=== PATIENT | male | born 1980 | race Caucasian/White ===

== ENCOUNTER 2021-04-16 14:28 | Emergency (ER) | payer OTHER, SELFPAY ==
[2021-04-16] VITALS (14 sets, daily range): BP systolic 130–150; BP diastolic 77–83; PULSE 66–91; RESP 14–25; TEMP 36.7; O2SAT 95–100
--- NOTE | 2021-04-16 15:10 | ECG_ITS ---
Measurements Intervals [place] Rate: 75 P: 48 IL: 170 QRS: -3 QRSD: 109 T: 40 QT: 366 QTc: 411 Interpretive Statements SINUS RHYTHM WITH SINUS ARRHYTHMIA INCOMPLETE RIGHT BUNDLE BRANCH BLOCK [90+ ms QRS DURATION, TERMINAL R IN V1/V2, 40+ ms S IN I/aVL/V4/V5/V6] ST ELEVATION, PROBABLY EARLY REPOLARIZATION [ST ELEVATION WITH NORMALLY INFLECTED T- WAVE] ABNORMAL ECG NO PREVIOUS ECG AVAILABLE FOR COMPARISON Electronically Signed On 04-16-2021 16:08:28 [employer]GER by Jay Jay Samuels M.D.
[2021-04-16 15:27] LABS: Basophils Absolute Auto 0.1 K/mm3 (0.0-0.1); Basophils Percent Auto 0.5 % (0.2-1.2); Eosinophils Absolute Auto 1.8 K/mm3 (0-0.3); Eosinophils Percent Auto 10.6 % (0-4.4); Hematocrit 48.7 % (42.0-52.0); Hemoglobin 16.6 g/dL (14.0-18.0); Immature Granulocyte Absolute 0.09 K/mm3 (0.00-0.031); Immature Granulocyte Percent A 0.5 % (0-0.5); Lymphocytes Absolute Auto 5.81 K/mm3 (0.9-3.2); Lymphocytes Percent Auto 35.2 % (18.3-44.2); Mean Corpuscular HGB Conc 34.1 g/dl (32-36); Mean Corpuscular Hemoglobin 31.4 pg (26-34); Mean Corpuscular Volume 92.1 fl (80-100); Mean Platelet Volume 9.8 fl (7.4-10.4); Monocytes Absolute Auto 1.1 K/mm3 (0.1-0.6); Monocytes Percent Auto 6.8 % (2.6-8.5); Neutrophils Absolute Auto 7.7 K/mm3 (1.3-6.7); Neutrophils Percent Auto 46.4 % (45.5-73.1); Platelet Count Result 228 k/mm3 (150-375); Red Blood Count 5.29 M/mm3 (4.6-6.20); Red Cell Distribution Width 12.9 % (11.5-14.5); White Blood Count 16.5 K/mm3 (4.5-10.0)
[2021-04-16 15:41] LABS: Alanine Aminotransferase 79 U/L (4-50); Albumin Level 4.3 g/dL (3.5-5.1); Alkaline Phosphatase 72 U/L (38-126); Anion Gap 8 mmol/L (8-16); Aspartate Amino Transferase 50 U/L (17-59); Bilirubin,Total 0.3 mg/dL (0.2-1.3); Blood Urea Nitrogen 23 mg/dL (9-20); Calcium 8.9 mg/dL (8.4-10.2); Carbon Dioxide 27 mmol/L (22-30); Chloride 101 mmol/L (98-107); Estimated CRCL calculation 139 ml/min; Estimated Glomerular Filt Rate > 60; Glucose 144 mg/dL (65-110); Magnesium 1.9 mg/dL (1.6-2.3); Potassium 3.9 mmol/L (3.4-5.0); Sodium 136 mmol/L (137-145)
[2021-04-16] MEDS: SODIUM CHLORIDE 0.9% IV 1,000 ML 999 ML IV CONT (15:51)
[2021-04-16 16:38] LABS: Atypical Lymphocytes Present; Platelet Estimate Adequate (Adequate); Smudge Cells FEW
--- NOTE | 2021-04-16 17:28 | PC.NURSE ---
pt. requesting to smoke a cigarette. pt. educated he cannot leave hospital with an IV in. pt. requesting to be updated. ERP made aware. no further orders at his time.
--- NOTE | 2021-04-16 17:32 | ED.NEUROSD ---
HPI - Neuro Symptoms/Deficit General Chief Complaint: Neuro Symptoms/Deficit Stated Complaint: NEUROPATHY ISSUES Time Seen by Provider: 04/16/21 14:58 History of Present Illness HPI Narrative: Patient is a 40-year-old male who presents ER with tingling discomfort to the skin of his body. The tingling can be burning and painful. Still has sensation. Ongoing for 5 days. Had his Simponi injection 2 weeks ago. Has not contacted rheumatology. No rash. Symptoms are worse with rubbing against things, touch, and touching his close. No fevers or chills or sweats. No slurred speech or facial droop. No weakness of arm or leg. No dizziness. Does have diabetes but reports his blood sugars have been normal. Has history of chronically elevated white blood cell count. Related Data Allergies Allergy/AdvReac Type Severity Reaction Status Date / Time No Known Allergies Allergy Unverified 09/21/15 14:06 Review of Systems Review of Systems: All systems reviewed & are unremarkable except as noted in HPI and below Constitutional: Constitutional: Denies chills, Denies fever(s) and Denies weakness ENT: Denies nasal congestion and Denies sore throat Cardiovascular: Cardiovascular: Denies chest pain, Denies rapid heart rate and Denies radiating jaw, neck or arm pain Respiratory: Respiratory: Denies cough, Denies dyspnea and Denies wheezing Gastrointestinal: Gastrointestinal: Denies abdominal pain, Denies nausea and Denies vomiting Neurologic: Denies vertigo, Denies dizziness, Denies syncope, Denies headache(s), Denies focal weakness and Denies numbness Comments: Tingling in extremities/trunk PMFSH Past Medical History Medical History (Updated 04/16/21 @ 17:54 by Jass Zurita MD) Diabetes Psoriatic arthritis Right arm fracture Social History Social History (Updated 01/24/19 @ 22:29 by Michael Feliciano) Smoking status: Never smoker Gender identity (if verbalized by the patient): Male Exam Narrative: GENERAL: Well-appearing, well-nourished, and in no acute distress. HEAD: Normocephalic, atraumatic. ENT: Mucous membranes moist. No facial droop. NECK: Supple. CHEST: Clear to auscultation. No respiratory distress. HEART: Regular rate and rhythm. Normal peripheral pulses. ABDOMEN: Soft, nontender, nondistended. EXTREMITIES: Normal range of motion. No edema. SKIN: Warm, dry, no rash. NEURO: No focal deficits. No upper or lower extremity drift. Normal joyp-ha-vnwl testing. Sharp and soft sensation intact. Alert and oriented x3. PSYCH: Normal mood and affect. Course Course Emergency Course: Patient informed results. Hydrated. Will give gabapentin for home and recommend follow-up with rheumatology and PCP. [place] to be a side effect of medication. No focal deficits. No infectious symptoms or back pain. Vital Signs Vital signs: Vital Signs Temperature 98.1 F 04/16/21 14:46 Pulse Rate 85 04/16/21 14:46 Respiratory Rate 18 04/16/21 14:46 Blood Pressure 150/83 H 04/16/21 14:46 Pulse Oximetry 98 04/16/21 14:46 Temperature 98.1 F 04/16/21 14:46 Pulse Rate 91 04/16/21 17:17 Respiratory Rate 24 H 04/16/21 17:17 Blood Pressure 133/82 04/16/21 17:17 Pulse Oximetry 99 04/16/21 17:17 MDM - Neuro Symptoms/Deficit Lab Data Result diagrams: 04/16/21 15:20 04/16/21 15:19 Labs: Lab Results 04/16/21 04/16/21 Range/Units 15:19 15:20 WBC 16.5 H (4.5-10.0) K/mm3 RBC 5.29 (4.6-6.20) M/mm3 Hgb 16.6 (14.0-18.0) g/dL Hct 48.7 (42.0-52.0) % MCV 92.1 (80-100) fl MCH 31.4 (26-34) pg MCHC 34.1 (32-36) g/dl RDW 12.9 (11.5-14.5) % Plt Count 228 (150-375) k/mm3 MPV 9.8 (7.4-10.4) fl Immature Gran % (Auto) 0.5 (0-0.5) % Neut % (Auto) 46.4 (45.5-73.1) % Lymph % (Auto) 35.2 (18.3-44.2) % [place] % (Auto) 6.8 (2.6-8.5) % Eos % (Auto) 10.6 H (0-4.4) % Baso % (Auto) 0.5 (0.2-1.2) % Lymph # (Auto) 5.81 H (0.9
== END 2021-04-16 18:11 | disposition home or self-care (01) ==
PROVIDERS: Emergency Provider Emergency Medicine; PCP Internal Medicine
DX: M79.2 Neuralgia and neuritis, unspecified (principal); E11.9 Type 2 diabetes mellitus without complications; L40.50 Arthropathic psoriasis, unspecified; I45.10 Unspecified right bundle-branch block; R94.31 Abnormal electrocardiogram [ECG] [EKG]
CPT/HCPCS: 36415; 80053; 83735; 85025; 93005; 96360; 99283; J7030